=== PATIENT | male | born 1995 | race Caucasian/White ===

== ENCOUNTER → 2016-10-13 | Outpatient (REF) | payer OTHER ==
[2016-10-16 00:06] LABS: D001-IgE D pteronyssinus <0.10 kU/L (Class 0); E001-IgE Cat Epith/Dander < 0.10 kU/L (Class 0); E005-IgE Dog Dander < 0.10 kU/L (Class 0); G002-IgE Bermuda Grass < 0.10 kU/L (Class 0); G008-IgE Kentucky Bluegrass < 0.10 kU/L (Class 0); M001-IgE Penicillium chrysogen < 0.10 kU/L (Class 0); M002 IgE Cladosporium herbaru < 0.10 kU/L (Class 0); M003 IgE Aspergillus fumigatu < 0.10 kU/L (Class 0); M006-IgE Alternaria alternata < 0.10 kU/L (Class 0); T001-IgE Maple/Box Elder < 0.10 kU/L (Class 0); T003-IgE Common Silver Birch < 0.10 kU/L (Class 0); T007-IgE Oak, White < 0.10 kU/L (Class 0); T008-IgE Elm, American < 0.10 kU/L (Class 0); T015-IgE Ash, White < 0.10 kU/L (Class 0); T041-IgE Hickory, White < 0.10 kU/L (Class 0); W001-IgE Ragweed, Short < 0.10 kU/L (Class 0); W009-IgE Plantain, English < 0.10 kU/L (Class 0); W014-IgE Pigweed, Rough < 0.10 kU/L (Class 0); W018-IgE Sheep Sorrel < 0.10 kU/L (Class 0)
== END ==
LOC: M LAB REF 09:07
PROVIDERS: ATTEND Nurse Practitioner Adult Health
DX: J45.30 Mild persistent asthma, uncomplicated (principal)

== ENCOUNTER 2019-12-11 12:29 | Day surgery (SDC) | payer OTHER ==
[~2019-12-11] VITALS: Ht 175.3 cm; Wt 79.4 kg
[2019-12-11] MEDS ORDERED: ALBU83IN INH (12:39)
[2019-12-11 13:17] LABS: BASO % 0.1 % (0.0-1.0); EOS % 0.2 % (0.0-3.0); HEMATOCRIT 44.6 % (42.0-52.0); HEMOGLOBIN 15.9 g/dl (13.5-17.5); LYMPH # 0.8 10^3/uL (1.5-5.0); LYMPH % 8.4 % (24.0-44.0); MEAN CORPUSCULAR HEMOGLOBIN 30.9 pg (27.0-33.0); MEAN CORPUSCULAR HGB CONC 35.7 g/dl (32.0-36.5); MEAN CORPUSCULAR VOLUME 86.8 fl (80.0-96.0); MONO # 0.5 10^3/uL (0.0-0.8); MONO % 4.9 % (0.0-5.0); NEUTROPHILS # 8.5 10^3/uL (1.5-8.5); NEUTROPHILS % 86.2 % (36.0-66.0); PLATELET COUNT, AUTOMATED 129 10^3/uL (150-450); RED BLOOD COUNT 5.14 10^6/uL (4.30-6.10); WHITE BLOOD COUNT 9.9 10^3/uL (4.0-10.0)
[2019-12-11] MEDS ORDERED: ISOVUE-370 76% 100ML VIAL As Ordered ONE (13:41)
[2019-12-11 13:44] LABS: ALBUMIN 4.7 GM/DL (3.2-5.2); BILIRUBIN,DIRECT 0.3 MG/DL (0.0-0.2); BILIRUBIN,TOTAL 1.3 MG/DL (0.2-1.0); TOTAL PROTEIN 7.2 GM/DL (6.4-8.2)
[2019-12-11] MEDS ORDERED: NS 1,000 ML IV ONE (13:45)
--- NOTE | 2019-12-11 14:23 | REPVR ---
PROCEDURE INFORMATION: Exam: CT Abdomen And Pelvis With Contrast Exam date and time: 12/11/2019 1:53 PM Age: 24 years old Clinical indication: Abdominal pain; Additional info: Rlq pain R/O appy TECHNIQUE: Imaging protocol: Computed tomography of the abdomen and pelvis with intravenous contrast. Radiation optimization: All CT scans at this facility use at least one of these dose optimization techniques: automated exposure control; mA and/or kV adjustment per patient size (includes targeted exams where dose is matched to clinical indication); or iterative reconstruction. Contrast material: ISOVUE 370; Contrast volume: 100 ml; Contrast route: INTRAVENOUS (IV); COMPARISON: No relevant prior studies available. FINDINGS: Liver: Normal. No mass. Gallbladder and bile ducts: Normal. No calcified stones. No ductal dilation. Pancreas: Normal. No ductal dilation. Spleen: The spleen is mildly enlarged measuring 15.3 cm transversely. Adrenals: Normal. No mass. Kidneys and ureters: Normal. No hydronephrosis. Stomach and bowel: Unremarkable. No obstruction. No mucosal thickening. Appendix: The appendix is mildly enlarged, measuring approximately 8.0 mm diameter with site periappendiceal edema. An obstructing appendicolith is not identified. A periappendiceal fluid collection is not identified. Intraperitoneal space: Minimal posterior pelvic peritoneal fluid right. Vasculature: Right pelvic phlebolith. Lymph nodes: No enlarged lymph nodes. Urinary bladder: Unremarkable as visualized. Reproductive: Unremarkable as visualized. Bones/joints: Unremarkable. No acute fracture. Soft tissues: Unremarkable. IMPRESSION: 1. Findings consistent with early appendicitis. Clinical correlation is recommended. 2. Minimal posterior pelvic peritoneal fluid right. 3. Mild splenomegaly. Electronically signed by: Thomas Newby On 12/11/2019 14:23:17 PM
[2019-12-11] MEDS ORDERED: PIPERACILLIN/TAZOBACTAM SOD 3.375 GM in D5W MINI-BAG PLUS 50 ML IV ONE (15:00)
[2019-12-11] MEDS ORDERED: PROAAER10 INH (15:36)
[2019-12-11] MEDS ORDERED: LR 1,000 ML IV SCH ×2 (17:12→19:30)
[2019-12-11] MEDS ORDERED: KETOROLAC 30 MG/ML 1ML VIAL IV PRN (17:15)
[2019-12-11] MEDS ORDERED: ONDANSETRON 4MG/2ML VIAL IV PRN ×2 (17:15→19:30)
[2019-12-11] MEDS ORDERED: MORPHINE 2 MG/ML 1ML VIAL (J2270) IV PRN ×2 (17:15→19:30)
[2019-12-11] MEDS ORDERED: BUPIVACAINE HCL 0.25% 30ML VIAL As Ordered ONE (17:33)
[2019-12-11] MEDS ORDERED: MIDAZOLAM INJ 2MG/2ML VIAL (J2250 PER 1MG) As Ordered ONE (17:52)
[2019-12-11] MEDS ORDERED: propofoL 200 MG/20 ML VIAL As Ordered ONE (17:52)
[2019-12-11] MEDS ORDERED: SUGAMMADEX SODIUM 500 MG/5 ML VIAL (BRIDION) As Ordered ONE (17:52)
[2019-12-11] MEDS ORDERED: fentaNYL 100 MCG/2 ML INJECTION (J3010) As Ordered ONE (17:52)
[2019-12-11] MEDS ORDERED: ONDANSETRON 4MG/2ML VIAL As Ordered ONE (17:52)
[2019-12-11] MEDS ORDERED: ACETAMINOPHEN 1000MG 100ML IV BTL (OFIRMEV) (J0131 PER 10MG) As Ordered ONE (17:52)
[2019-12-11] MEDS ORDERED: dexameTHASONE 4 MG/ML 1ML VIAL (J1100 PER 1MG) As Ordered ONE (17:52)
[2019-12-11] MEDS ORDERED: KETOROLAC 60MG 2ML VIAL As Ordered ONE (17:52)
[2019-12-11] MEDS ORDERED: ROCURONIUM BROMIDE 50 MG/5 ML VIAL As Ordered ONE (17:52)
[2019-12-11] MEDS ORDERED: LIDOCAINE 2% 100MG/5ML SDV (FOR ANES.) As Ordered ONE (17:52)
[2019-12-11] MEDS ORDERED: IBUPROFEN 600MG TAB PO PRN (19:30)
[2019-12-11] MEDS ORDERED: METOCLOPRAMIDE INJ 10MG/2ML VIAL (J2765 PER 1) IV PRN (19:30)
[2019-12-11] MEDS ORDERED: ALBUTEROL 90 MCG/ACT 8GM HFA INHALER INH PRN (19:30)
[2019-12-11] MEDS ORDERED: ACETAMINOPHEN TAB 650MG DOSE (2X325MG) PO PRN (19:30)
[2019-12-11] MEDS ORDERED: fentaNYL 100 MCG/2 ML INJECTION (J3010) IV PRN (19:30)
[2019-12-11] MEDS: oxyCODONE 5MG TAB PO PRN ×2 (19:50→20:14)
[2019-12-11 20:25] VITALS: BP 129/66
[2019-12-11 20:55] VITALS: BP 125/65
[2019-12-11 21:55] VITALS: BP 122/64
[2019-12-11] MEDS: PIPERACILLIN/TAZOBACTAM SOD 3.375 GM in D5W MINI-BAG PLUS 50 ML IV SCH (22:42)
[2019-12-11 22:55] VITALS: BP 117/63
[2019-12-11 23:55] VITALS: BP 110/50
[2019-12-12 00:55] VITALS: BP 109/66
[2019-12-12 02:00] VITALS: BP 112/52
[2019-12-12] MEDS: PIPERACILLIN/TAZOBACTAM SOD 3.375 GM in D5W MINI-BAG PLUS 50 ML IV SCH ×3 (04:58→15:30)
[2019-12-12 06:00] VITALS: BP 106/66
[2019-12-12] MEDS: NORCO, ANEXSIA 5/325MG TABLET (HYDROcodone/ACETAMINOPHEN) PO PRN ×2 (09:37→15:30)
[2019-12-12 09:56] VITALS: BP 114/61
--- NOTE | 2019-12-12 10:44 | RO ---
DATE OF OPERATION: 12/11/2019 PREOPERATIVE DIAGNOSIS: Acute appendicitis. POSTOPERATIVE DIAGNOSIS: Acute appendicitis. PROCEDURE: Laparoscopic appendectomy. SURGEON: Bib Trimble M.D. ANESTHESIA: General. INDICATIONS FOR PROCEDURE: Patient is a 24-year-old man who presented to the emergency department with a one-day history of abdominal pain primarily located in the right lower quadrant. He was found to have tenderness in the right lower quadrant suggestive of appendicitis and a CT scan confirmed a somewhat dilated appendix with some mild periappendiceal inflammation. He is now for a laparoscopic appendectomy. OPERATIVE PROCEDURE: The patient was brought to the operating room and placed on the table in a supine position. He was placed under general endotracheal anesthesia. The patients abdomen was prepped and draped in a sterile fashion. A 0.25% Marcaine was infiltrated at each of the trocar sites as needed. A short supraumbilical midline incision was made and a Veress needle was inserted. After a positive hanging drop test, the abdomen was insufflated with carbon dioxide gas. The fascia was then incised and a 12 mm port was placed. The laparoscope was inserted. Initial examination showed normal-appearing liver and gallbladder. Visualized portions of the stomach and small and large bowel appeared normal. There was a minimal amount of clear, free fluid in the right lower quadrant. Two 5 mm ports were placed in the left lower quadrant. Graspers were inserted. The omentum was elevated off of the structures in the right lower quadrant as the patient was tilted to a slight Trendelenburg position and rolled slightly to the left. The appendix was exposed just inferior to the cecum. The appendix was clearly inflamed, at least in the distal half and was distended and firm. The mesoappendix was grasped. There was some fairly extensive attachments of the appendix to the retroperitoneum. These were lysed using the hook cautery. The appendix was freed down to the base. A 45 mm endoscope linear cutter stapler with a blue load was placed across the junction of the cecum and appendix and fired. The appendix was placed in an Endopouch. There was no bleeding from the staple line. The right lower quadrant was irrigated. The patient was returned to a flat position. The abdomen was deflated and the trocars were removed. The appendix was recovered through the supraumbilical site. The fascia was closed with 2-0 Vicryl and the skin incisions were all closed with 4-0 Vicryl and Steri-Strips. Light dressings were applied. The patient tolerated the procedure well without apparent complication. He was awakened in the operating room, extubated, and moved to the recovery room in stable condition. AJ
[2019-12-12 14:16] VITALS: BP 122/59
--- NOTE | 2019-12-13 11:33 | IPN ---
DATE: 12/11/2019 HISTORY: The patient is now postop day #1 from a laparoscopic appendectomy for acute appendicitis. The patient has done well and has advanced his diet from clear liquids to regular food. He has been up ambulating. He reports some discomfort, which is controlled with oral medications. SUBJECTIVE: Vital signs show that he has been afebrile since the surgery. His pulse is in the 50s to low 70s. Blood pressure is good. Intake and output shows that he has had an excellent intake of oral fluids and his urine output is excellent. PHYSICAL EXAMINATION: Patient moves well in bed. He is alert and oriented. Heart and lung exams are unremarkable. The abdomen is flat. His three dressings are clean and dry. He has bowel sounds present. He has some expected tenderness to palpation. IMPRESSION: The patient is doing very well now one day postop from his laparoscopic appendectomy. PLAN: I discussed discharge plans with the patient and he feels that he is ready to go home today. He will be getting his medications from the [facility] and is aware that he will not be able to get his prescription for [place] filled tonight but believes he can get by with ibuprofen or Tylenol tonight and get his prescription filled in the morning. I will provide him a slip recommending no strenuous activity for two weeks. He should follow up in my office with me in 10-14 days. He should call the office for any problems. He can take a diet as tolerated and can shower 24 hours after the surgery has been performed. AJ
== END 2019-12-12 18:35 | disposition home or self-care (01) ==
LOC: M ED 12:29 → M SDC 12:30 → M MSPAV 22:27 → M SDC 12-12 18:35
PROVIDERS: ATTEND Surgery
DX: K35.890 Other acute appendicitis without perforation or gangrene (principal)
CPT/HCPCS: 36415; 44970; 74177; 80047; 80076; 83690; 85025; 88304; 96361; 96365; 96366; 99284; J0131; J1100; J1885; J2250; J2405; J2543; J3010; Q9967; U0002